=== PATIENT | male | born 1965 | race Caucasian/White ===

== ENCOUNTER → 2020-10-05 17:43 | Outpatient (CLI) | payer MEDICARE ==
[2020-10-05 18:54] LABS: BASOPHILS 0.7 % (0-2); EOSINOPHILS 7.7 % (0-7); HEMATOCRIT 33.5 % (42.0-54.0); HEMOGLOBIN 10.3 g/dL (13.5-17.5); IMMATURE GRANULOCYTES 0.5 % (0-5); LYMPHOCYTE ABS# 4.02 10x3/uL (1.32-3.57); LYMPHOCYTES 32.2 % (15-50); MCH 28.5 pg (26.0-34.0); MCHC 30.7 g/dL (31.0-37.0); MCV 92.8 fL (80.0-100.0); MEAN PLATELET VOLUME 9.3 fL (7.4-10.4); MONOCYTES 9.2 % (2-11); NEUTROPHIL ABS# 6.19 10x3/uL (1.78-5.38); NEUTROPHILS 49.7 % (40-80); PLATELET COUNT 441 10x3/uL (130-400); RBC 3.61 10x6/uL (4.20-6.10); RDW 15.5 % (11.5-14.5); WBC 12.5 10x3/uL (4.8-10.8)
[2020-10-05 19:17] LABS: ALBUMIN 2.6 g/dL (3.4-5.0); ANION GAP 9.5 mmol/L (8-16); BILIRUBIN - TOTAL 0.28 mg/dL (0.2-1.3); CALCIUM 8.8 mg/dL (8.5-10.1); CARBON DIOXIDE 32.8 mmol/L (21.0-32.0); CREATININE - SERUM 1.5 mg/dL (0.6-1.3); POTASSIUM - SERUM 4.3 mmol/L (3.5-5.1); PROTEIN - SERUM 6.9 g/dL (6.4-8.2); THYROID STIMULATING HORMONE 1.53 uIU/mL (0.36-3.74)
== END | disposition home or self-care (01) ==
LOC: D.LABREF 17:43
PROVIDERS: ATTEND Family Medicine
DX: J96.01 Acute respiratory failure with hypoxia (principal); I63.9 Cerebral infarction, unspecified; I10 Essential (primary) hypertension; E11.9 Type 2 diabetes mellitus without complications

== ENCOUNTER → 2020-10-23 18:46 | Outpatient (CLI) | payer MEDICARE ==
[2020-10-23 19:58] LABS: BILIRUBIN NEGATIVE (NEGATIVE); KETONE NEGATIVE (NEGATIVE); NITRITE NEGATIVE (NEGATIVE); UROBILINOGEN NORMAL mg/dL (< 2)
== END | disposition home or self-care (01) ==
LOC: D.LABREF 18:46
PROVIDERS: ATTEND Family Medicine
DX: R10.2 Pelvic and perineal pain (principal)

== ENCOUNTER → 2020-10-29 20:34 | Outpatient (CLI) | payer MEDICARE | END | disposition home or self-care (01) | LOC: D.LABREF 20:34 | PROVIDERS: ATTEND Family Medicine | DX: Z51.81 Encounter for therapeutic drug level monitoring (principal) ==

== ENCOUNTER → 2020-11-19 18:04 | Outpatient (CLI) | payer MEDICARE ==
[2020-11-19 19:06] LABS: BASOPHILS 0.5 % (0-2); EOSINOPHILS 3.7 % (0-7); HEMATOCRIT 35.8 % (42.0-54.0); HEMOGLOBIN 11.3 g/dL (13.5-17.5); IMMATURE GRANULOCYTES 0.2 % (0-5); LYMPHOCYTE ABS# 3.36 10x3/uL (1.32-3.57); LYMPHOCYTES 32.9 % (15-50); MCHC 31.6 g/dL (31.0-37.0); MCV 88.8 fL (80.0-100.0); MEAN PLATELET VOLUME 10.5 fL (7.4-10.4); MONOCYTES 9.4 % (2-11); NEUTROPHIL ABS# 5.43 10x3/uL (1.78-5.38); NEUTROPHILS 53.3 % (40-80); PLATELET COUNT 402 10x3/uL (130-400); RBC 4.03 10x6/uL (4.20-6.10); RDW 13.6 % (11.5-14.5); WBC 10.2 10x3/uL (4.8-10.8)
[2020-11-19 20:25] LABS: ANION GAP 14.6 mmol/L (8-16); BILIRUBIN - TOTAL 0.23 mg/dL (0.2-1.3); CARBON DIOXIDE 27.4 mmol/L (21.0-32.0); CREATININE - SERUM 1.3 mg/dL (0.6-1.3); PROTEIN - SERUM 7.8 g/dL (6.4-8.2)
== END | disposition home or self-care (01) ==
LOC: D.LABREF 18:04
PROVIDERS: ATTEND Family Medicine
DX: R30.0 Dysuria (principal); R10.9 Unspecified abdominal pain

== ENCOUNTER → 2020-11-20 10:53 | Outpatient (CLI) | payer MEDICARE ==
[2020-11-20 11:35] LABS: KETONE NEGATIVE (NEGATIVE); NITRITE NEGATIVE (NEGATIVE)
[2020-11-20 11:36] LABS: BILIRUBIN NEGATIVE (NEGATIVE)
== END | disposition home or self-care (01) ==
LOC: D.LABREF 10:53
PROVIDERS: ATTEND Family Medicine
DX: R30.0 Dysuria (principal); R10.9 Unspecified abdominal pain

== ENCOUNTER → 2020-12-06 20:41 | Outpatient (CLI) | payer MEDICARE ==
[2020-12-06 21:13] LABS: BASOPHILS 0.9 % (0-2); EOSINOPHILS 8.1 % (0-7); HEMATOCRIT 26.4 % (42.0-54.0); HEMOGLOBIN 8.6 g/dL (13.5-17.5); IMMATURE GRANULOCYTES 0.2 % (0-5); LYMPHOCYTE ABS# 3.23 10x3/uL (1.32-3.57); MCH 28.3 pg (26.0-34.0); MCHC 32.6 g/dL (31.0-37.0); MCV 86.8 fL (80.0-100.0); MEAN PLATELET VOLUME 9.9 fL (7.4-10.4); MONOCYTES 10.3 % (2-11); NEUTROPHIL ABS# 4.64 10x3/uL (1.78-5.38); NEUTROPHILS 47.5 % (40-80); PLATELET COUNT 422 10x3/uL (130-400); RBC 3.04 10x6/uL (4.20-6.10); RDW 13.3 % (11.5-14.5); WBC 9.8 10x3/uL (4.8-10.8)
[2020-12-06 21:33] LABS: ALBUMIN 3.1 g/dL (3.4-5.0); ANION GAP 9.7 mmol/L (8-16); BILIRUBIN - TOTAL 0.17 mg/dL (0.2-1.3); CALCIUM 9.2 mg/dL (8.5-10.1); CHOL - HDL RATIO 3.6 ratio (2.3-4.9); CREATININE - SERUM 1.2 mg/dL (0.6-1.3); POTASSIUM - SERUM 3.7 mmol/L (3.5-5.1); PROTEIN - SERUM 7.6 g/dL (6.4-8.2); THYROID STIMULATING HORMONE 2.12 uIU/mL (0.36-3.74); VALPROIC ACID (DEPAKOTE) 0.3 ug/mL (50.0-100.0)
== END | disposition home or self-care (01) ==
LOC: D.LABREF 20:41
PROVIDERS: ATTEND Family Medicine
DX: J96.01 Acute respiratory failure with hypoxia (principal); E08.40 Diabetes mellitus due to underlying condition with diabetic neuropathy, unspecified; E78.5 Hyperlipidemia, unspecified; E86.0 Dehydration

== ENCOUNTER → 2020-12-12 21:08 | Outpatient (CLI) | payer MEDICARE ==
[2020-12-12 21:19] LABS: BASOPHILS 0.6 % (0-2); HEMATOCRIT 34.2 % (42.0-54.0); HEMOGLOBIN 10.9 g/dL (13.5-17.5); IMMATURE GRANULOCYTES 0.1 % (0-5); LYMPHOCYTE ABS# 2.62 10x3/uL (1.32-3.57); LYMPHOCYTES 26.9 % (15-50); MCH 27.8 pg (26.0-34.0); MCHC 31.9 g/dL (31.0-37.0); MCV 87.2 fL (80.0-100.0); MEAN PLATELET VOLUME 9.9 fL (7.4-10.4); MONOCYTES 7.8 % (2-11); NEUTROPHIL ABS# 5.42 10x3/uL (1.78-5.38); NEUTROPHILS 55.6 % (40-80); RBC 3.92 10x6/uL (4.20-6.10); RDW 13.2 % (11.5-14.5); WBC 9.8 10x3/uL (4.8-10.8)
[2020-12-12 21:20] LABS: PLATELET COUNT 287 10x3/uL (130-400)
[2020-12-12 21:31] LABS: % SATURATION 27 % (15-55); IRON 61 ug/dl (35-150); TOTAL IRON BIND CAPACITY 221 ug/dl (260-445); UNSAT IRON BIND CAPACITY 160 ug/dl (150-375)
== END | disposition home or self-care (01) ==
LOC: D.LABREF 21:08
PROVIDERS: ATTEND Family Medicine
DX: D64.9 Anemia, unspecified (principal)

== ENCOUNTER → 2020-12-27 17:18 | Outpatient (CLI) | payer MEDICARE | END | disposition home or self-care (01) | LOC: D.LABREF 17:18 | PROVIDERS: ATTEND Family Medicine | DX: M10.9 Gout, unspecified (principal) ==

== ENCOUNTER → 2021-01-21 17:36 | Outpatient (CLI) | payer MEDICARE ==
[2021-01-21 17:50] LABS: BASOPHILS 1.3 % (0-2); EOSINOPHILS 5.8 % (0-7); HEMATOCRIT 38.7 % (42.0-54.0); LYMPHOCYTES 39.5 % (15-50); MCHC 33.6 g/dL (31.0-37.0); MCV 83.5 fL (80.0-100.0); MEAN PLATELET VOLUME 7.8 fL (7.4-10.4); MONOCYTES 9.4 % (2-11); RBC 4.63 10x6/uL (4.20-6.10); RDW 13.7 % (11.5-14.5); WBC 13.4 10x3/uL (4.8-10.8)
[2021-01-21 18:06] LABS: ALBUMIN 3.4 g/dL (3.4-5.0); ANION GAP 10.2 mmol/L (8-16); BILIRUBIN - TOTAL 0.37 mg/dL (0.2-1.3); CALCIUM 8.7 mg/dL (8.5-10.1); CARBON DIOXIDE 31.5 mmol/L (21.0-32.0); CREATININE - SERUM 1.2 mg/dL (0.6-1.3); PLATELET COUNT 383 10x3/uL (130-400); POTASSIUM - SERUM 3.7 mmol/L (3.5-5.1); PROTEIN - SERUM 7.9 g/dL (6.4-8.2)
== END | disposition home or self-care (01) ==
LOC: D.LABREF 17:36
PROVIDERS: ATTEND Family Medicine
DX: J96.01 Acute respiratory failure with hypoxia (principal); R09.3 Abnormal sputum